=== PATIENT | female | born 1930 | race Caucasian/White ===

== ENCOUNTER → 2017-06-02 | Outpatient (CLI) | payer MEDICARE ==
[~2017-06-02] MED LIST: AMLO10 PO; CARB100ER PO; CHOL10002 PO; CYAN500 PO; DIVA500EC PO; FAMO20 PO; HYDMOR2 PO; LEVSOD75 PO; MAGOXI400 PO; Multivitamin1 EAC1 PO; PRED20 PO; Ultram50 MG PO; Verapamil ER200 MG; Zithromax250 MG PO
[2017-06-02 15:05] LABS: Source, Urine Clean Catch
[2017-06-02 15:57] LABS: Bilirubin, Urine Neg (Neg); Blood, Urine Neg (Neg); Glucose Qualitative, Urine Neg (Neg); Ketones, Urine Neg (Neg); Leukocyte Esterase, Urine 1+ (Neg); Nitrite, Urine Neg (Neg); Protein, Urine Neg (Neg); Urobilinogen, Urine NORM (Normal)
[2017-06-02 16:06] LABS: Appearance, Urine Clear (Clear); Color, Urine Yellow (P-Yellow); Red Blood Cells, Urine Not Seen /hpf (0-2)
[2017-06-02 16:07] LABS: Bacteria Few /hpf; Squamous Epithelial Cells Few /hpf (Few)
== END | disposition home or self-care (01) ==
LOC: OLS 15:04
PROVIDERS: Internal Medicine
DX: N18.3 Chronic kidney disease, stage 3 (moderate) (principal); D63.1 Anemia in chronic kidney disease
CPT/HCPCS: 81001

== ENCOUNTER 2017-06-28 19:37 | Emergency (ER) | payer MEDICARE ==
[~2017-06-28] VITALS: Ht 154.9 cm; Wt 76.7 kg
[2017-06-28] MEDS ORDERED: AMLO10 PO (20:02)
[2017-06-28] MEDS ORDERED: CARB100ER PO (20:03)
[2017-06-28] MEDS ORDERED: CHOL10002 PO (20:04)
[2017-06-28] MEDS ORDERED: CYAN500 PO (20:05)
[2017-06-28] MEDS ORDERED: LEVSOD75 PO (20:05)
[2017-06-28] MEDS ORDERED: MAGOXI400 PO (20:06)
[2017-06-28] MEDS ORDERED: Multivitamin1 EAC1 PO (20:06)
[2017-06-28] MEDS ORDERED: HYDMOR2 PO (20:07)
[2017-06-28] MEDS ORDERED: FAMO20 PO (20:07)
== END 2017-06-28 21:02 | disposition home or self-care (01) ==
LOC: ER 19:37
DX: M79.651 Pain in right thigh (principal); I10 Essential (primary) hypertension; E03.9 Hypothyroidism, unspecified; K21.9 Gastro-esophageal reflux disease without esophagitis; Z79.899 Other long term (current) drug therapy
CPT/HCPCS: 36415; 93971; 99284

== ENCOUNTER → 2019-05-24 | Outpatient (CLI) | payer MEDICARE ==
[2019-05-24 15:59] LABS: Albumin, Blood 3.7 g/dL (3.4-5.0); Anion Gap 5 mmol/L (6-16); Blood Urea Nitrogen 22 mg/dL (8-24); Bun/Creatinine Ratio 23.5 (12.0-20.0); CO2, Blood 30 mmol/L (21-32); Calcium, Blood 9.8 mg/dL (8.5-10.1); Chloride, Blood 97 mmol/L (98-108); Creatinine, Blood 0.94 mg/dL (0.40-1.00); Glomerular Filtration Rate >60 (60-); Glucose, Blood 82 mg/dL (70-99); Phosphorus, Blood 3.3 mg/dL (2.5-4.9); Potassium, Blood 4.4 mmol/L (3.5-5.5); Sodium, Blood 132 mmol/L (136-145); Uric Acid, Blood 4.4 mg/dL (2.6-6.0)
[2019-05-24 16:16] LABS: Creatinine, Urine Random 73.4 mg/dL (27.00-270.00)
[2019-05-24 16:18] LABS: Protein, Urine Random 7.7 mg/dL (0.0-11.9)
== END | disposition home or self-care (01) ==
LOC: LAB SHORT 08:49 → LAB 08:49
PROVIDERS: Internal Medicine
DX: E87.1 Hypo-osmolality and hyponatremia (principal)
CPT/HCPCS: 36415; 80069; 82570; 83935; 84156; 84300; 84550

== ENCOUNTER → 2019-11-04 | Outpatient (CLI) | payer MEDICARE ==
[2019-11-05 18:20] LABS: Campylobacter Sp Not Detected (NOT DETECT); E. Coli O157 Not Detected (NOT DETECT); Enteroaggregative E. coli-EAEC Not Detected (NOT DETECT); Enteropathogenic E. coli-EPEC Not Detected (NOT DETECT); Enterotoxigenic E. coli-ETEC Not Detected (NOT DETECT); Plesiomonas Shigelloides Not Detected (NOT DETECT); Salmonella Sp Not Detected (NOT DETECT); Shiga Toxin-prod E. coli-STEC Not Detected (NOT DETECT); Vibrio Cholerae Not Detected (NOT DETECT); Vibrio Sp Not Detected (NOT DETECT); Yersinia Enterocolitica Not Detected (NOT DETECT)
[2019-11-05 18:21] LABS: Adenovirus F 40/41 Not Detected (NOT DETECT); Astrovirus Not Detected (NOT DETECT); Cryptosporidium Not Detected (NOT DETECT); Cyclospora Cayetanensis Not Detected (NOT DETECT); Entamoeba Histolytica Not Detected (NOT DETECT); Giardia Lamblia Not Detected (NOT DETECT); Norovirus GI/GII Not Detected (NOT DETECT); Rotavirus A Not Detected (NOT DETECT); Sapovirus Not Detected (NOT DETECT); Shigella/Enteroin E. coli-EIEC Not Detected (NOT DETECT)
== END | disposition home or self-care (01) ==
LOC: LAB SHORT 10:00 → LAB 10:00
PROVIDERS: Internal Medicine Gastroenterology
DX: R19.7 Diarrhea, unspecified (principal)
CPT/HCPCS: 0097U